=== PATIENT | female | born 1985 | race Caucasian/White ===

== ENCOUNTER 2019-11-29 04:12 | Emergency (ER) | payer OTHER ==
[~2019-11-29] VITALS: Ht 170.2 cm; Wt 70.5 kg
[2019-11-29 04:12] VITALS: BP 136/73
--- NOTE | 2019-11-29 04:42 | PHYS DOC ---
Past History Past Medical History: No Pertinent History Past Surgical History: No Surgical History Alcohol Use: Occasionally General Adult EDM: Chief Complaint: FINGER INJURY HPI: HPI: ".. I ve been watching this finger get worse the last 3 weeks.. I was trying to wait until [place] opened up.. but I could not take it anymore... " " I took 800 Ibuprofen last night.. but pain still kept me up... I ve been soaking it.. but its not gotten better..." Patient is a 34 year old female who presents with above hx and complaints of Rt. 5. th finger paronychia. Pt. area infection cover almost entire distal digit of 5th finger. Pt. reportedly has been doing warm water soaks with no improvement the last 3 weeks, but marked increased inflammation and pain in last 24 hrs.. The patient denies any history of immunosuppression. No recent travel. No specific ill contacts. Patient's tetanus is up-to-date. Patient follows at [facility] [place]. Patient is left-hand dominant. Distal neurovascular intact. In spite of the inflammation of the left fifth finger Review of Systems: Review of Systems: Constitutional: Denies fever or chills Eyes: Denies change in visual acuity HENT: Denies nasal congestion or sore throat Respiratory: Denies cough or shortness of breath Cardiovascular: Denies chest pain or edema GI: Denies abdominal pain, nausea, vomiting, bloody stools or diarrhea : Denies dysuria Musculoskeletal: Denies back pain or joint pain Integument: Complains of paronychia Rt fifth finger Neurologic: Denies headache, focal weakness or sensory changes Endocrine: Denies polyuria or polydipsia Lymphatic: Denies swollen glands Psychiatric: Denies depression or anxiety Heart Score: Risk Factors: Risk Factors: DM, Current or recent (<one month) smoker, HTN, HLP, family history of CAD, obesity. Risk Scores: Score 0 - 3: 2.5% MACE over next 6 weeks - Discharge Home Score 4 - 6: 20.3% MACE over next 6 weeks - Admit for Clinical Observation Score 7 - 10: 72.7% MACE over next 6 weeks - Early Invasive Strategies Family History: Family History: Noncontributory Current Medications: Current Meds: See nursing for home meds Allergies: Allergies: Allergies Coded Allergies Type Severity Reaction Last Updated Verified shellfish derived Allergy Severe Anaphylaxis 11/29/19 Yes tramadol Allergy Intermediate Nausea 11/29/19 Yes Physical Exam: PE: Constitutional: Well developed, well nourished, reports acute distress, non- toxic appearance. [] HENT: Normocephalic, atraumatic, bilateral external ears normal, oropharynx moist, no oral exudates, nose normal. [] Eyes: PERRLA, EOMI, conjunctiva normal, no discharge. [] Neck: Normal range of motion, no tenderness, supple, no stridor. [] Cardiovascular:Heart rate regular rhythm, no murmur [] Lungs & Thorax: Bilateral breath sounds equal apex on auscultation [] Abdomen: Bowel sounds normal, soft, no tenderness, no masses, no pulsatile masses. [] Skin: Warm, dry, no erythema, no rash. [] Back: No tenderness, no CVA tenderness. [] Extremities: No tenderness, no cyanosis, no clubbing, ROM intact, no edema. Except findings in Rt fifth finger Neurologic: Alert and oriented X 3, normal motor function, normal sensory function, no focal deficits noted. [] Psychologic: Affect anxious, judgement normal, mood normal. [] Current Patient Data: Vital Signs: Vital Signs Date Time Temp Pulse Resp B/P (MAP) Pulse Ox O2 Delivery O2 Flow Rate FiO2 11/29/19 04:12 98.1 63 16 136/73 (94) 99 Room Air EKG: EKG: [] Radiology/Procedures: Radiology/Procedures: [] Course & Med Decision Making: Course & Med Decision Making Pertinent Labs and Imaging studies reviewed. (See chart for details) Procedure note-right fifth finger cleaned with Betadine. Incision with a 15 blade, with release of copious amounts of green-yellow pus. Antibiotic ointment and dressed . The patient to continue very warm salt watert soaks or Epsom salt soaks 4 times a day. Then massage area Polysporin 4 times a day. Patient take Bactrim DS twice a day. Patient follow-up with primary care. Patient monitor site for improvement, if no improvement must have reexam. Take Tylenol ibuprofen for pain.. For severe pain may take Vicoprofen up to 4 times a day. Return if any concerns. Impression: 1. Right fifth finger-paronychia and abscess [] Dragon Disclaimer: Dragon Disclaimer: This electronic medical record was generated, in whole or in part, using a voice recognition dictation system. Departure Departure: Disposition: 01 DC HOME SELF CARE/HOMELESS Condition: STABLE Scripts Hydrocodone/Ibuprofen (HYDROCODONE-IBUPROFEN 7.5-200 ) 1 Each Tablet 1 TAB PO PRN Q6HRS PRN for PAIN, #30 TAB 0 Refills Prov: MEGHANN GALINDO MD 11/29/19 Ibuprofen (IBUPROFEN) 400 Mg Tablet 600 MG PO QIDPRN PRN for pain, fever, #120 TAB Prov: MEGHANN GALINDO MD 11/29/19 Acetaminophen (ACETAMINOPHEN) 500 Mg Tablet 1000 MG PO QIDPRN PRN for pain or fever, #120 TAB Prov: MEGHANN GALINDO MD 11/29/19 Sulfamethoxazole/Trimethoprim (BACTRIM DS TABLET) 1 Each Tablet 1 TAB PO BID for celluitis for 10 Days, #20 TAB 0 Refills Prov: MEGHANN GALINDO MD 11/29/19 Abida Disclaimer This chart was dictated in whole or in part using Voice Recognition software in a busy, high-work load, and often noisy Emergency Department environment. It may contain unintended and wholly unrecognized errors or omissions. MEGHANN GALINDO MD Nov 29, 2019 04:42
[2019-11-29] MEDS ORDERED: ACET500T68 PO (04:50)
[2019-11-29] MEDS ORDERED: SULF1TAB24 PO (04:50)
[2019-11-29] MEDS ORDERED: IBUP400T18 PO (04:50)
[2019-11-29] MEDS ORDERED: HYDR-1179 PO (04:50)
[2019-11-29] MEDS ORDERED: ACETAMINOPHEN 500 MG TABLET PO ONE (05:00)
[2019-11-29] MEDS ORDERED: BACITRACIN ZINC TOPICAL OINT PACKET. TP ONE (05:00)
[2019-11-29] MEDS ORDERED: SMZ/TMP 800/160MG TABLET. PO ONE (05:00)
[2019-11-29] MEDS ORDERED: IBUPROFEN 400 MG TABLET. PO ONE (05:00)
== END 2019-11-29 05:28 | disposition home or self-care (01) ==
LOC: ER 04:12
DX: L03.011 Cellulitis of right finger (principal); L02.511 Cutaneous abscess of right hand; Z91.013 Allergy to seafood; Z88.6 Allergy status to analgesic agent
CPT/HCPCS: 10060; 99284